=== PATIENT | female | born 2000 | race Caucasian/White ===

== ENCOUNTER → 2019-03-24 | Outpatient (REF) | payer OTHER ==
[~2019-03-24] MED LIST: AUGM500T34 PO; IBUP200T2 PO; TYLE325T5 PO
== END ==
LOC: M LAB REF 11:34
PROVIDERS: ATTEND Orthopaedic Surgery
DX: L72.3 Sebaceous cyst (principal)

== ENCOUNTER → 2023-01-01 | Outpatient (REF) | payer OTHER ==
[~2023-01-01] MED LIST changes: +CITA20TA7 PO; +CLOB0.057; +KETO2SHA8; +SERT25TA21 PO
[2023-01-01 16:39] LABS: HEMATOCRIT 42.5 % (36.0-47.0); HEMOGLOBIN 13.6 g/dl (12.0-15.5); MEAN CORPUSCULAR HEMOGLOBIN 28.5 pg (27.0-33.0); MEAN CORPUSCULAR VOLUME 89.1 fl (80.0-96.0); PLATELET COUNT, AUTOMATED 347 10^3/uL (150-450); RED BLOOD COUNT 4.77 10^6/uL (4.00-5.40); WHITE BLOOD COUNT 8.6 10^3/uL (4.0-10.0)
[2023-01-01 17:28] LABS: BLOOD UREA NITROGEN 12 MG/DL (9-23); CALCIUM LEVEL 9.2 MG/DL (8.5-10.1); CARBON DIOXIDE LEVEL 29 MMOL/L (20-31); CHLORIDE LEVEL 104 MMOL/L (98-107); GLUCOSE, FASTING 79 MG/DL (60-100); POTASSIUM SERUM 4.1 MMOL/L (3.5-5.1); SODIUM LEVEL 139 MMOL/L (136-145)
[2023-01-01 20:28] LABS: CREATININE FOR GFR 0.66 MG/DL (0.55-1.30); GLOMERULAR FILTRATION RATE > 60.0 (>60)
== END ==
LOC: M LABDRWAD 16:02
PROVIDERS: ATTEND Plastic Surgery Surgery of the Hand
DX: N62 Hypertrophy of breast (principal)

== ENCOUNTER → 2023-01-03 | Outpatient (CLI) | payer OTHER | LOC: M LABSMTC 09:42 | PROVIDERS: ATTEND Anesthesiology | DX: Z01.812 Encounter for preprocedural laboratory examination (principal); Z11.52 Encounter for screening for COVID-19 ==

== ENCOUNTER 2023-01-08 07:26 | Observation (INO) | payer OTHER ==
[~2023-01-08] VITALS: Ht 157.5 cm; Wt 65.7 kg
[~2023-01-08 07:26] MED LIST changes: +ceFAZolin SOD 2 GM in IV 1 EA IV ONE
[2023-01-08] MEDS ORDERED: ROCURONIUM BROMIDE 50MG/5ML VIAL As Ordered ONE ×2 (08:06→09:48)
[2023-01-08] MEDS ORDERED: fentaNYL 100 MCG/2 ML INJECTION As Ordered ONE (08:06)
[2023-01-08] MEDS ORDERED: LIDOCAINE 2% 100MG/5ML SDV (FOR ANES.) As Ordered ONE (08:06)
[2023-01-08] MEDS ORDERED: MIDAZOLAM INJ 2MG/2ML VIAL As Ordered ONE (08:06)
[2023-01-08] MEDS ORDERED: propofoL 200 MG/20 ML VIAL As Ordered ONE (08:06)
[2023-01-08] MEDS ORDERED: ONDANSETRON 4MG 2ML VIAL As Ordered ONE (08:07)
[2023-01-08] MEDS ORDERED: LR 1,000 ML IV SCH ×2 (08:25→12:25)
[2023-01-08] MEDS ORDERED: BUPIVACAINE HCL 0.25% 10ML VIAL As Ordered ONE (08:37)
[2023-01-08] MEDS ORDERED: GENTAMICIN SULF 80MG/2ML VIAL As Ordered ONE (08:37)
[2023-01-08] MEDS ORDERED: BUPIVACAINE LIPOSOME/PF 1.3% 20ML VIAL (13.3MG/ML)(EXPAREL) As Ordered ONE (08:37)
[2023-01-08] MEDS ORDERED: ACETAMINOPHEN 1000MG 100ML IV BAG As Ordered ONE (09:48)
[2023-01-08] MEDS ORDERED: SUGAMMADEX SODIUM 500 MG/5 ML VIAL (BRIDION) As Ordered ONE (09:48)
[2023-01-08] MEDS ORDERED: SCOPOLAMINE 1MG TRANSDERMAL PATCH TOP ONE (09:50)
[2023-01-08] MEDS ORDERED: HYDROmorphone HCL 2MG/ML 1ML VIAL As Ordered ONE (09:52)
[2023-01-08] MEDS ORDERED: ePHEDrine SULFATE 25 MG/5 ML(5MG/ML) SYRINGE As Ordered ONE (10:44)
[2023-01-08] MEDS ORDERED: PHENYLephrine 500MCG 5ML (100MCG/ML) SYRINGE As Ordered ONE (10:45)
[2023-01-08] MEDS ORDERED: ONDANSETRON 4MG 2ML VIAL IV PRN ×2 (12:25→12:45)
[2023-01-08] MEDS ORDERED: HYDROMORPHONE HCL 0.5 MG/ 0.5 ML SYRINGE IV PRN (12:25)
[2023-01-08] MEDS ORDERED: fentaNYL 100 MCG/2 ML INJECTION IV PRN (12:25)
[2023-01-08] MEDS ORDERED: oxyCODONE 5MG TAB PO PRN (12:25)
[2023-01-08] MEDS: LR 1,000 ML IV SCH (12:45)
[2023-01-08] MEDS ORDERED: PERCOCET 5MG/325MG TAB PO PRN (12:45)
[2023-01-08] MEDS ORDERED: ceFAZolin SOD 2 GM in IV 1 EA IV ONE (13:00)
[2023-01-08 13:50] VITALS: BP 104/64
[2023-01-08 14:20] VITALS: BP 106/66
[2023-01-08 15:20] VITALS: BP 107/64
[2023-01-08] MEDS: ACETAMINOPHEN TAB 650MG DOSE (2X325MG) PO PRN (16:40)
[2023-01-08 17:20] VITALS: BP 103/68
[2023-01-08 18:20] VITALS: BP 105/61
[2023-01-08] MEDS: traMADol 50 MG TAB PO PRN (20:11)
[2023-01-08 22:04] VITALS: BP 107/60
[2023-01-09] MEDS: traMADol 50 MG TAB PO PRN ×2 (02:18→10:42)
[2023-01-09 02:21] VITALS: BP 101/71
[2023-01-09] MEDS: LR 1,000 ML IV SCH (02:51)
[2023-01-09] MEDS: ACETAMINOPHEN TAB 650MG DOSE (2X325MG) PO PRN (06:39)
[2023-01-09 06:44] VITALS: BP 103/71
[2023-01-09 10:00] VITALS: BP 102/57
[2023-01-09] MEDS ORDERED: TRAM50TA2 PO (10:36)
== END 2023-01-09 12:10 | disposition home or self-care (01) ==
LOC: M SDC 07:26 → M MS5PR 07:27
PROVIDERS: ADMIT Plastic Surgery Surgery of the Hand; ATTEND Plastic Surgery Surgery of the Hand
DX: N62 Hypertrophy of breast (principal); N64.81 Ptosis of breast; M54.2 Cervicalgia; M54.6 Pain in thoracic spine; L40.9 Psoriasis, unspecified; F41.9 Anxiety disorder, unspecified; F32.A Depression, unspecified; F17.290 Nicotine dependence, other tobacco product, uncomplicated; Z79.899 Other long term (current) drug therapy
CPT/HCPCS: 19318; 81025; 88307; 96374; C9290; J0131; J0690; J1100; J1170; J1580; J2250; J2370; J2405; J3010; S0020

== ENCOUNTER → 2024-12-24 | Outpatient (REF) | payer OTHER ==
[~2024-12-24] MED LIST changes: +TRAM50TA2 PO; -ceFAZolin SOD 2 GM in IV 1 EA IV ONE
[2024-12-24 15:26] LABS: Trichomonas vaginalis (AMP) NOT DETECTED (NEGATIVE)
[2024-12-24 15:49] LABS: GC DNA AMPLIFICATION NEGATIVE (NEGATIVE)
== END ==
LOC: M SFHCWAGY 12:57
PROVIDERS: ATTEND Nurse Practitioner Family
DX: Z34.80 Encounter for supervision of other normal pregnancy, unspecified trimester (principal)

== ENCOUNTER → 2025-01-06 | Outpatient (CLI) | payer OTHER ==
[2025-01-06 15:00] LABS: HEMATOCRIT 37.6 % (36.0-47.0); HEMOGLOBIN 12.4 g/dl (12.0-15.5); MEAN CORPUSCULAR HEMOGLOBIN 29.2 pg (27.0-33.0); MEAN CORPUSCULAR VOLUME 88.5 fl (80.0-96.0); PLATELET COUNT, AUTOMATED 322 10^3/uL (150-450); RED BLOOD COUNT 4.25 10^6/uL (4.00-5.40); WHITE BLOOD COUNT 6.7 10^3/uL (4.0-10.0)
[2025-01-06 15:41] LABS: HIV 1&2 SCREEN NEGATIVE (NEGATIVE)
[2025-01-06 15:50] LABS: HEPATITIS C VIRUS ABY INDEX 0.11 INDEX (<0.8)
== END ==
LOC: M PLALAB 10:00
PROVIDERS: ATTEND Nurse Practitioner Family
DX: Z34.80 Encounter for supervision of other normal pregnancy, unspecified trimester (principal)

== ENCOUNTER → 2025-02-26 | Outpatient (CLI) | payer OTHER | LOC: M WHC 07:34 | PROVIDERS: ATTEND Nurse Practitioner Family | DX: Z34.80 Encounter for supervision of other normal pregnancy, unspecified trimester (principal) ==

== ENCOUNTER → 2025-06-23 | Outpatient (REF) | payer OTHER ==
[~2025-06-23] MED LIST changes: +KETO120S5; -KETO2SHA8
== END ==
LOC: M SFHCWAGY 10:19
PROVIDERS: ATTEND Nurse Practitioner Family
DX: Z36.85 Encounter for antenatal screening for Streptococcus B (principal); Z3A.36 36 weeks gestation of pregnancy

== ENCOUNTER 2025-07-01 10:20 | Emergency (ER) | payer OTHER ==
[~2025-07-01] VITALS: Ht 160 cm; Wt 73.1 kg
[2025-07-01 10:25] VITALS: BP 136/81; TEMP 97.4; O2SAT 100
[2025-07-01] MEDS ORDERED: FERR325T19 (10:28)
[2025-07-01] MEDS ORDERED: CYCL10TA20 PO (12:48)
== END 2025-07-01 11:59 | disposition admitted as inpatient to this hospital (09) ==
LOC: M ED 10:20
DX: Z53.21 Procedure and treatment not carried out due to patient leaving prior to being seen by health care provider (principal)

== ENCOUNTER 2025-07-01 12:01 | Outpatient (CLI) | payer OTHER ==
[~2025-07-01] VITALS: Ht 160 cm; Wt 73.2 kg
[~2025-07-01 12:01] MED LIST changes: +FERR325T19
[2025-07-01 12:19] VITALS: BP 120/76; O2SAT 100
[2025-07-01] MEDS ORDERED: HOME MED LIST COMPLETE! XX SCH (12:25)
[2025-07-01] MEDS ORDERED: CYCL10TA20 PO (12:48)
[2025-07-01] MEDS: CYCLOBENZAPRINE 10 MG TABLET PO ONE (13:01)
== END 2025-07-01 13:12 | disposition home or self-care (01) ==
LOC: M LDO 12:01
PROVIDERS: ATTEND Obstetrics & Gynecology
DX: O26.893 Other specified pregnancy related conditions, third trimester (principal); M25.519 Pain in unspecified shoulder; Z3A.37 37 weeks gestation of pregnancy
CPT/HCPCS: 59025; G0463

== ENCOUNTER 2025-07-12 00:21 | Inpatient (IN) | payer OTHER ==
[2025-07-12] VITALS (34 sets, daily range): BP systolic 102–179; BP diastolic 57–84; O2SAT 100
[~2025-07-12] VITALS: Ht 160 cm; Wt 74.8 kg
[~2025-07-12 00:21] MED LIST changes: +CYCL10TA20 PO
[2025-07-12 01:07] LABS: PLATELET COUNT, AUTOMATED 283 10^3/uL (150-450)
[2025-07-12] MEDS ORDERED: HOME MED LIST COMPLETE! XX SCH ×2 (01:25→07:35)
[2025-07-12 04:18] LABS: HIV 1&2 SCREEN NEGATIVE (NEGATIVE)
[2025-07-12 04:26] LABS: HEPATITIS C VIRUS ABY INDEX < 0.02 INDEX (<0.8)
[2025-07-12] MEDS ORDERED: LIDOCAINE 1% MDV 20 ML VIAL INFIL PRN (04:50)
[2025-07-12] MEDS ORDERED: OXYTOCIN DRIP 30 UNITS in IV 1 EA IV PRN (04:50)
[2025-07-12] MEDS ORDERED: PRENTAB9 PO (07:33)
[2025-07-12] MEDS ORDERED: OXYTOCIN INJ 10UNITS/ML 1ML VIAL IM PRN (13:25)
[2025-07-12] MEDS ORDERED: TRANEXAMIC ACID INJection 1,000 MG in NS 100 ML IV PRN (13:25)
[2025-07-12] MEDS ORDERED: CARBOPROST TROMETHAMINE 250 MCG/ML AMP IM PRN (13:25)
[2025-07-12] MEDS ORDERED: METHYLERGONOVINE MALEATE 0.2 MG/ML 1 ML VIAL IM PRN (13:25)
[2025-07-12] MEDS: OXYTOCIN DRIP 30 UNITS in IV 1 EA IV SCH (13:46)
[2025-07-12] MEDS: LR 1,000 ML IV SCH (13:46)
[2025-07-12] MEDS ORDERED: LR 500 ML IV PRN (14:50)
[2025-07-12] MEDS ORDERED: NALOXONE INJ 0.4 MG/1 ML VIAL IV PRN (14:50)
[2025-07-12] MEDS ORDERED: diphenhydrAMINE 50 MG/ML VIAL IV PRN (14:50)
[2025-07-12] MEDS ORDERED: EPIDURAL/PCA KEYS XX PRN (14:50)
[2025-07-12] MEDS ORDERED: ONDANSETRON 4MG 2ML VIAL IV PRN (14:50)
[2025-07-12] MEDS: FENTANYL/ROPIVACAINE/NACL BAG 100 ML EPIDURAL SCH (15:25)
[2025-07-12] MEDS ORDERED: ACETAMINOPHEN 325 MG TAB PO PRN (20:55)
[2025-07-12] MEDS ORDERED: ANUSOL HC CREAM 30 GM TOP PRN (20:55)
[2025-07-12] MEDS ORDERED: IBUPROFEN 600 MG TAB PO PRN (20:55)
[2025-07-12] MEDS ORDERED: DIBUCAINE 1% OINTMENT 30 GM TOP PRN (20:55)
[2025-07-12] MEDS ORDERED: MOM 30 ML SUSPENSION UDC PO PRN (20:55)
[2025-07-12] MEDS ORDERED: DOCUSATE SODIUM 100 MG CAPSULE PO PRN (20:55)
[2025-07-13] MEDS: ACETAMINOPHEN 500 MG TAB PO PRN (00:13)
[2025-07-13 06:05] VITALS: BP 114/62; O2SAT 98
[2025-07-13] MEDS: IBUPROFEN 800 MG TAB PO PRN (06:24)
[2025-07-13] MEDS: PRENATAL VITAMINS CHEWABLE TABLET PO SCH (11:58)
[2025-07-13] MEDS: RHOGAM 300MCG (1500IU) INJ IM SCH (14:29)
[2025-07-13 18:00] VITALS: BP 109/63; O2SAT 97
[2025-07-14 06:00] VITALS: BP 114/65; O2SAT 98
[2025-07-14] MEDS: MEASLES,MUMPS,RUBELLA VACCINE INJ (MMR-II) SC.IMMUN ONE (09:00)
== END 2025-07-14 11:45 | disposition home or self-care (01) | DRG 560 ==
LOC: M LDO 00:21 → M LDI 00:45 → M OBS 22:09
PROVIDERS: ADMIT Specialist; ATTEND Advanced Practice Midwife
PROC: 10E0XZZ Delivery of Products of Conception, External Approach (ICD-10-PCS; principal; 2025-07-12)
PROC: 0HQ9XZZ Repair Perineum Skin, External Approach (ICD-10-PCS; 2025-07-12)
DX: O70.0 First degree perineal laceration during delivery (principal); Z37.0 Single live birth; Z3A.39 39 weeks gestation of pregnancy

== ENCOUNTER 2025-08-01 09:33 | Emergency (ER) | payer MEDICAID, OTHER ==
[~2025-08-01] VITALS: Ht 160 cm; Wt 66.1 kg
[~2025-08-01 09:33] MED LIST changes: +PRENTAB9 PO
[2025-08-01] MEDS ORDERED: ACET-907 PO (09:46)
[2025-08-01] MEDS ORDERED: DICL500C (09:46)
[2025-08-01 10:33] LABS: BASO # 0.1 10^3/uL (0.0-0.2); BASO % 0.3 % (0.0-1.0); EOS # 0.1 10^3/uL (0.0-0.5); EOS % 0.4 % (0.0-3.0); LYMPH # 0.8 10^3/uL (1.5-5.0); LYMPH % 4.7 % (24.0-44.0); MONO # 0.3 10^3/uL (0.0-0.8); MONO % 1.7 % (2.0-8.0); NEUTROPHILS # 14.7 10^3/uL (1.5-8.5); NEUTROPHILS % 92.5 % (36.0-66.0); PLATELET COUNT, AUTOMATED 318 10^3/uL (150-450)
[2025-08-01] MEDS: NS (Normal Saline) 0.9% 1,000 ML IV ONE (10:45)
[2025-08-01] MEDS: KETOROLAC 30 MG/ML 1 ML VIAL IV ONE (10:46)
[2025-08-01 10:54] LABS: CALCIUM LEVEL 9.6 MG/DL (8.5-10.1); CARBON DIOXIDE LEVEL 22 MMOL/L (20-31); CHLORIDE LEVEL 103 MMOL/L (98-107); CREATININE FOR GFR 0.67 MG/DL (0.55-1.30); GLOMERULAR FILTRATION RATE > 90.0 (>60); POTASSIUM SERUM 3.7 MMOL/L (3.5-5.1); SODIUM LEVEL 138 MMOL/L (136-145)
[2025-08-01 10:59] LABS: KETONE, URINE AUTO RFX TRACE mg/dL (NEGATIVE); NITRITE, URINE AUTO RFX NEGATIVE (NEGATIVE); RBC, URINE AUTO RFX 2 /HPF (0-3); SQUAM EPITHELIAL CELL UR AURFX 3 /HPF (0-6)
[2025-08-01 11:00] LABS: LEUKOCYTE ESTERASE UR AUTO RFX 3+ (NEGATIVE); WBC, URINE AUTO RFX 23 /HPF (0-3)
[2025-08-01] MEDS: cefTRIAXone SOD 2 GM in DEXTROSE 5% (D5W) ADV/MINI-BAG 50 ML IV ONE (13:01)
[2025-08-01] MEDS: ACETAMINOPHEN 325 MG TAB PO ONE (14:03)
[2025-08-01] MEDS ORDERED: DICL500C PO (14:38)
[2025-08-01 15:15] VITALS: BP 99/57; TEMP 98.5; O2SAT 98
== END 2025-08-01 15:38 | disposition home or self-care (01) ==
LOC: M ED 10:49
DX: N61.0 Mastitis without abscess (principal); Z79.1 Long term (current) use of non-steroidal anti-inflammatories (NSAID); Z79.810 Long term (current) use of selective estrogen receptor modulators (SERMs)
CPT/HCPCS: 76642; 80048; 81001; 83605; 84145; 85025; 87040; 87088; 87186; 87486; 87581; 87633; 87798; 93041; 96361; 96365; 96366; 96375; 99285; J0696; J1885